=== PATIENT | female | born 1945 | race Caucasian/White ===

== ENCOUNTER → 2017-03-11 | Outpatient (CLI) | payer OTHER | LOC: CIMAGING 10:01 | PROVIDERS: ATTEND Family Medicine | DX: M17.12 Unilateral primary osteoarthritis, left knee (principal) | CPT/HCPCS: 73562-PO ==

== ENCOUNTER → 2017-03-20 | Outpatient (CLI) | payer OTHER | LOC: BRMIMAGING 14:11 | PROVIDERS: ATTEND Family Medicine | DX: Z13.820 Encounter for screening for osteoporosis (principal); M85.80 Other specified disorders of bone density and structure, unspecified site; E07.9 Disorder of thyroid, unspecified; Z87.81 Personal history of (healed) traumatic fracture ==

== ENCOUNTER → 2017-09-30 | Outpatient (CLI) | payer OTHER | LOC: CLAB 11:59 → CIMAGING 12:06 | PROVIDERS: ATTEND Family Medicine | DX: M51.37 Other intervertebral disc degeneration, lumbosacral region (principal); M21.70 Unequal limb length (acquired), unspecified site | CPT/HCPCS: 72100-PO ==